=== PATIENT | male | born 1995 | race Caucasian/White ===

== ENCOUNTER 2017-06-24 00:25 | Emergency (ER) | payer BC ==
[~2017-06-24] VITALS: Ht 167.6 cm; Wt 84.4 kg
[2017-06-24 00:32] VITALS: TEMP 36.6; O2SAT 97; Ht 167.6 cm; Wt 84.4 kg
--- NOTE | 2017-06-24 00:50 | EMERGENCY ROOM VISIT NOTE ---
History Report prepared by Adrian: Jennifer Chavez Under the Supervision of: Dr. Italia Cordero D.O. First contact with patient: 00:27 Chief Complaint: ALCOHOL OVERDOSE Stated Complaint: ALCOHOL OVERDOSE Nursing Triage Summary: Patient arrived to ED via BLS transport after he was found to be intoxicated and urinating outside. Patient was urinating in a andrew in front of a endoscopy tech, took a tumble and caused abrasion to right hand. Patient denies pain at this time. Denies drug use. History of Present Illness The patient is a 21 year old male who presents to the Emergency Room with complaints of intoxication. Per EMS, police found him staggering downtown and his PBT was 282. He denies any chest pain, abdominal pain, neck pain, back pain, or drug use Source of History: patient, EMS History Limited By: intoxication Onset: a few hours waitstaff captain Position: other (global ) Quality: other (intoxication ) Associated Symptoms: No neck pain, No chest pain, No abdominal pain, No back pain Note: Negative falls and smoking Review of Systems See HPI for pertinent positives & negatives. A total of 10 systems reviewed and were otherwise negative. Past Medical & Surgical No past medical and surgical history available. Family History No pertinent family history Social History Smoking Status: Never Smoker Alcohol Use: occasionally Occupation Status: [employer] student Current/Historical Medications No Active Prescriptions or Reported Meds Allergies Coded Allergies: No Known Allergies (Unverified , 06/24/17) Physical Exam Vital Signs Date Time Temp Pulse Resp B/P (MAP) Pulse Ox O2 Delivery O2 Flow Rate FiO2 06/24/17 05:52 74 18 128/67 95 Room Air 06/24/17 04:11 68 06/24/17 04:00 72 18 109/66 94 Room Air 06/24/17 03:00 88 18 110/75 97 Room Air 06/24/17 01:55 88 18 115/95 97 Room Air 06/24/17 00:34 105 06/24/17 00:32 36.6 117 18 153/88 97 Room Air 06/24/17 00:32 97 Room Air Physical Exam HEENT: Head - normocephalic and atraumatic Alert and oriented. Pupils are 4 mm and sluggishly reactive to light. Extraocular eye muscles are intact, and sclera are anicteric. Nose - moist nasal mucosa without discharge. Mouth - moist buccal mucosa. Oropharynx is nonerythematous and there is no tonsillar exudate or edema noted. Neck: Supple; no JVD, nuchal rigidity, cervical lymphadenopathy. Heart: Regular rate and tachycardic. There is a normal S1 and S2 with no murmurs, clicks, or gallops appreciated. Lungs: Clear to auscultation bilaterally with no wheezes, rales, or rhonchi. Abdomen: Soft, completely nontender, nondistended, with good bowel sounds. There are no palpable pulsatile masses or hepatosplenomegaly. There is no guarding, rigidity, or rebound noted. Extremities: No evidence of cyanosis, clubbing, or edema. There are easily palpable peripheral pulses. Skin: warm and dry with good turgor and no rashes. Smells of alcohol. Medical Decision & Procedures Laboratory Results 06/24/17 00:32 Test 06/24/17 00:32 Anion Gap 10.0 mmol/L (3-11) Est Creatinine Clear Calc Drug Dose 116.7 ml/min Estimated GFR () 121.2 Estimated GFR (Non- 104.6 BUN/Creatinine Ratio 16.6 (10-20) Calcium Level 8.8 mg/dl (8.5-10.1) Ethyl Alcohol mg/dL 323.0 mg/dl (0-3) Laboratory results per my review. ED Course 0035: Past medical records reviewed. The patient was evaluated in room B3. A complete history and physical exam was performed. Labs were drawn as above. The patient was observed on the environmental monitoring specialist and pulse oximeter. He was placed in the prone position to avoid aspiration. 0128: I reevaluated the patient at this time and he is awake and talking to registration. 0325: I reevaluated the patient at this time. He was sound asleep and his vitals were stable. 0450: Upon reevaluation, he is awake and is unable to find a sober friend to come get him. He will be discharged at 0700 on his own. I discussed findings and results with him. He verbalized agreement of the treatment plan. He was discharged home. 0545: The patient was able to find a sober friend to pick him up here in the emergency department. I encouraged him to avoid such excessive alcohol use in the future. Medical Decision The patient is a 21 year old male who presents to the ED with intoxication. Differential diagnosis includes alcohol overdose, drug intoxication, hypoglycemia, head injury. Lab results show alcohol is 323, glucose of 111, normal renal function. This is a 21-year-old male patient was brought to the emergency department after consuming too much alcohol. He had no obvious signs of trauma. He had no other complaints. He was encouraged to avoid such excessive alcohol use in the future. Is able to drink without difficulty. Medication Reconcilliation Current Medication List: was personally reviewed by me Blood Pressure Screening Patient's blood pressure: Elevated blood pressure Blood pressure disposition: Elevated BP felt to be situational Impression Primary Impression: Alcohol overdose Scribe Attestation The scribe's documentation has been prepared under my direction and personally reviewed by me in its entirety. I confirm that the note above accurately reflects all work, treatment, procedures, and medical decision making performed by me. Departure Information Dispostion Home / Self-Care Prescriptions No Active Prescriptions or Reported Meds Forms HOME CARE DOCUMENTATION FORM, IMPORTANT VISIT INFORMATION Patient Instructions My [facility] Problem Qualifiers Primary Impression: Alcohol overdose Encounter type: initial encounter Injury intent: accidental or unintentional Qualified Codes: T51.91XA - Toxic effect of unspecified alcohol , accidental (unintentional), initial encounter
[2017-06-24 00:55] LABS: CALCIUM 8.8 mg/dl (8.5-10.1); CREATININE 1.02 mg/dl (0.60-1.40); POTASSIUM 3.6 mmol/L (3.5-5.1)
[2017-06-24 05:52] VITALS: BP 128/67; PULSE 74; O2SAT 95
== END 2017-06-24 06:07 | disposition home or self-care (01) ==
LOC: EDBD 00:25 → C.EDB 00:28
DX: F10.929 Alcohol use, unspecified with intoxication, unspecified (principal); Y90.8 Blood alcohol level of 240 mg/100 ml or more; R03.0 Elevated blood-pressure reading, without diagnosis of hypertension; R00.0 Tachycardia, unspecified